=== PATIENT | female | born 1975 | race Caucasian/White ===

== ENCOUNTER 2020-07-01 10:00 | Outpatient (CLI) | payer BC, SELFPAY ==
--- NOTE | ~2020-07-01 | MM_ITS ---
EXAMINATION: MM screening emily BI w mauricio HISTORY: Screening mammogram TECHNIQUE: Craniocaudal and mediolateral oblique 3-D tomosynthesis images were obtained and synthetic 2-D images were generated. Bilateral rotated lateral CC views. CAD analysis was submitted and int erpreted. COMPARISON: 05/01/2019, 03/26/2018, 01/16/2017 bilateral digital screening mammogram examinations BREAST PARENCHYMAL COMPOSITION: There are scattered areas of fibroglandular density. FINDINGS: Stable bilateral fibroglandular asymmetry. There are bilateral benign calcifications. Ther e is no evidence of suspicious mass, calcification, or architectural distortion to suggest malignancy in either breast. There has been no suspicious interval change. IMPRESSION: 1. No mammographic evidence of malignancy. 2. Recommend routine screening mammography in one year. BI-RADS Category 2: Benign finding(s). Reviewed, dictated and finalized at location A.
== END 2020-07-01 10:01 | disposition home or self-care (01) ==
LOC: ANHIMG 10:03
PROVIDERS: PCP Family Medicine; Visit Provider Obstetrics & Gynecology
DX: Z12.31 Encounter for screening mammogram for malignant neoplasm of breast (principal); N64.89 Other specified disorders of breast
CPT/HCPCS: 77063; 77067

== ENCOUNTER 2021-06-23 00:39 | Day surgery (SDC) | payer BC, SELFPAY ==
[2021-06-14 09:04] VITALS: BMI 28.3
--- NOTE | 2021-06-22 08:23 | PM.HPGS ---
History of Present Illness History of Present Illness Consent: Risks, benefits, and alternatives have been discussed and questions answered. Patient agrees to proceed with procedure. Chief complaint: neoplasm screening Narrative: Mary Jo Rahman is a 45 year old female with a family history of colon cancer. Her last colonoscopy 6 years ago was unremarkable Review of Systems Review of Systems: All systems reviewed & are unremarkable except as noted in HPI and below PMFSH Past Medical History Medical History Overweight Surgical History Surgical History H/O colonoscopy H/O wrist surgery H/O: hysterectomy Social History Social History Smoking status: Never smoker Alcohol intake: current Alcohol use details: Occasional drink per week Substance use: never Substance use type: does not use Living arrangements: with family Gender identity (if verbalized by the patient): Female Spiritual care concerns: No Meds Home Medications and Allergies Home Medications Medication Instructions Recorded Confirmed Type No Home Medications 06/23/21 06/23/21 History Allergies Allergy/AdvReac Type Severity Reaction Status Date / Time metoclopramide Allergy Severe FEEL LIKE Verified 06/23/21 06:38 BUGS ARE CRAWLING ALL OVER ME Penicillins Allergy Intermediate Hives Verified 06/23/21 06:38 Exam Resp: Auscultation: clear to auscultation bilaterally Cardio: Rate: regular rate Rhythm: regular rhythm GI: GI Palp: Yes Soft to palpation and No Tenderness to palpation present (GI) Assessment and Plan Assessment and plan (1) Colon cancer screening: Code(s): Z12.11 - Encounter for screening for malignant neoplasm of colon Status: Acute Assessment and Plan: Colonoscopy with possible biopsy or polypectomy or cautery or injection of substances.
[2021-06-23 06:39] VITALS: BP 128/88; PULSE 68; RESP 18; TEMP 36.7; O2SAT 100
[2021-06-23] MEDS: LACTATED RINGERS 1,000 ML 150 ML IV CONT (06:48)
--- NOTE | 2021-06-23 07:01 | P.PNAN_ITS ---
Anes - Initial Pre Proc Eval Procedure: Operation Date: 06/23/21 08:00 Proposed Procedures p Screening Colonoscopy - Dany Edge MD Date/Time: 06/23/21 07:01 Surgeon: Dany Edge MD Pre Op Diagnosis: neoplasm screening Patient Data Age: 45 Gender: F Height: 1.63 m Weight: 75.7 kg Last Vital Signs Temp 36.7 C 06/23/21 06:39 Pulse 68 06/23/21 06:39 Resp 18 06/23/21 06:39 BP 128/88 06/23/21 06:39 Pulse Ox 100 06/23/21 06:39 Allergies Allergy/AdvReac Type Severity Reaction Status Date / Time metoclopramide Allergy Severe FEEL LIKE Verified 06/23/21 06:38 BUGS ARE CRAWLING ALL OVER ME Penicillins Allergy Intermediate Hives Verified 06/23/21 06:38 Home Medications Medication Instructions Recorded Confirmed Type No Home Medications 06/23/21 06/23/21 History Patient hx anesthesia problems: none Family hx anesthesia problems: none [facility] Past Medical History Medical History (Updated 06/23/21 @ 07:01 by Rafael Rocha MD) Overweight Surgical History Surgical History (Updated 06/23/21 @ 07:01 by Rafael Rocha MD) H/O colonoscopy H/O wrist surgery H/O: hysterectomy Social History Social History Smoking status: Never smoker Alcohol intake: current Alcohol use details: Occasional drink per week Substance use: never Substance use type: does not use Living arrangements: with family Gender identity (if verbalized by the patient): Female Spiritual care concerns: No Anes - Eval Final PreProcedure Day of Procedure 06/23/21 07:01 Patient weight: overweight Heart: regular rate and rhythm Lungs: clear to auscultation Airway: Mallampati scale class II Neurological: alert and oriented Last oral intake: >/= 8 hours ASA classification: II Emergent: no Anesthetic plan: proceed Anesthesia type and monitoring: general GIVS and standard monitoring Informed Consent: The patient's anesthetic plan and its attendant risks and benefits were discussed with the patient/family/POA. Questions were solicited and answers provided to the satisfaction of the patient/family/POA.
[2021-06-23 08:22] VITALS: BP 107/63; PULSE 82; RESP 21; O2SAT 100
[2021-06-23 08:32] VITALS: BP 125/74; PULSE 50; RESP 20; O2SAT 100
[2021-06-23 08:42] VITALS: BP 126/80; PULSE 52; RESP 18; O2SAT 100
== END 2021-06-23 08:24 | disposition home or self-care (01) ==
PROVIDERS: PCP Family Medicine; Visit Provider Internal Medicine Gastroenterology
PROC: 0DJD8ZZ Inspection of Lower Intestinal Tract, Via Natural or Artificial Opening Endoscopic (ICD-10-PCS; CPT 45378; principal; 2021-06-23 08:00)
DX: Z12.11 Encounter for screening for malignant neoplasm of colon (principal); Z80.0 Family history of malignant neoplasm of digestive organs
CPT/HCPCS: 45378; J2704; J7120

== ENCOUNTER 2021-07-07 10:04 | Outpatient (CLI) | payer BC, SELFPAY ==
--- NOTE | ~2021-07-07 | MM_ITS ---
EXAMINATION: MM screening emily BI w mauricio HISTORY: Screening mammogram TECHNIQUE: Craniocaudal and mediolateral oblique 3-D tomosynthesis images were obtained and synthetic 2-D images were generated. CAD analysis was submitted and interpreted. COMPARISON: 07/01/2020, 05/01/2019, 03/26/2018 bilateral screening mammogram examinations BREAST PARENCHYMAL COMPOSITION: There are scattered areas of fibroglandular density. FINDINGS: Occasional bilateral benign calcifications. There is no evidence of suspicious mass, calcif ication, or architectural distortion to suggest malignancy in either breast. There has been no suspic ious interval change. IMPRESSION: 1. No mammographic evidence of malignancy. 2. Recommend routine screening mammography in one year. BI-RADS Category 2: Benign finding(s). Reviewed, dictated and finalized at location A.
== END 2021-07-07 10:05 | disposition home or self-care (01) ==
LOC: ANHIMG 10:07
PROVIDERS: PCP Family Medicine; Visit Provider Obstetrics & Gynecology
DX: Z12.31 Encounter for screening mammogram for malignant neoplasm of breast (principal)
CPT/HCPCS: 77063; 77067

== ENCOUNTER 2022-08-16 11:01 | Outpatient (CLI) | payer BC, SELFPAY ==
--- NOTE | ~2022-08-16 | MM_ITS ---
EXAMINATION: MM screening emily BI w mauricio HISTORY: Screening TECHNIQUE: Craniocaudal and mediolateral oblique 3-D tomosynthesis images were obtained and synthetic 2-D images were generated. CAD analysis was submitted and interpreted. COMPARISON: Comparison to multiple prior studies sequentially, with oldest reviewed study dated 01/04. BREAST PARENCHYMAL COMPOSITION: The breasts are heterogeneously dense, which may obscure small masses . FINDINGS: There is no evidence of suspicious mass, calcification, or architectural distortion to sugg est malignancy in either breast. There has been no suspicious interval change. IMPRESSION: 1. No mammographic evidence of malignancy. 2. Recommend routine screening mammography in one year. BI-RADS Category 1: Negative Reviewed, dictated and finalized at location A.
== END 2022-08-16 11:02 | disposition home or self-care (01) ==
PROVIDERS: PCP Family Medicine; Visit Provider Obstetrics & Gynecology
DX: Z12.31 Encounter for screening mammogram for malignant neoplasm of breast (principal)
CPT/HCPCS: 77063; 77067

== ENCOUNTER 2023-12-12 09:48 | Outpatient (CLI) | payer BC, SELFPAY ==
--- NOTE | ~2023-12-12 | MM_ITS ---
EXAMINATION: MM screening [facility] BI w mauricio HISTORY: Screening TECHNIQUE: Craniocaudal and mediolateral oblique 3-D tomosynthesis images were obtained and synthetic 2-D images were generated. CAD analysis was submitted and interpreted. COMPARISON: Comparison to multiple prior studies sequentially, with oldest reviewed study dated 03/26. BREAST PARENCHYMAL COMPOSITION: Not dense: There are scattered areas of fibroglandular density. FINDINGS: There is no evidence of suspicious mass, calcification, or architectural distortion to sugg est malignancy in either breast. There has been no suspicious interval change. IMPRESSION: 1. No mammographic evidence of malignancy. 2. Recommend routine screening mammography in one year. BI-RADS Category 1: Negative Reviewed, dictated and finalized at location A. DIAN
== END 2023-12-12 09:49 | disposition home or self-care (01) ==
LOC: ANHIMG 09:50
PROVIDERS: Visit Provider Obstetrics & Gynecology
DX: Z12.31 Encounter for screening mammogram for malignant neoplasm of breast (principal)
CPT/HCPCS: 77063; 77067

== ENCOUNTER 2025-01-14 15:23 | Outpatient (CLI) | payer BC, SELFPAY ==
--- NOTE | ~2025-01-14 | MM_ITS ---
EXAMINATION: MM screening emily BI w mauricio HISTORY: Screening TECHNIQUE: Craniocaudal and mediolateral oblique 3-D tomosynthesis images were obtained and synthetic 2-D images were generated. CAD analysis was submitted and interpreted. COMPARISON: Comparison to multiple prior studies sequentially, with oldest reviewed study dated 03/26. BREAST PARENCHYMAL COMPOSITION: . Not dense: There are scattered areas of fibroglandular density. FINDINGS: There is no evidence of suspicious mass, calcification, or architectural distortion to sugg est malignancy in either breast. There has been no suspicious interval change. IMPRESSION: 1. No mammographic evidence of malignancy. 2. Recommend routine screening mammography in one year. BI-RADS Category 1: Negative Reviewed, dictated and finalized at location A.
--- OUTSIDE RECORDS SUMMARY | 2025-01-14 16:51 | XMS_ITS | Encounter Summary ---
Author Organization [facility] Address [address] [facility] [place] [address] Care Team Providers Care It Security Analyst Name Role Phone Unavailable Primary Care Provider Unavailabl e Encounter Details Date Type Department Care Team (Late st Contact Info) Description 11/02/2018 Lab Requisition [facility] Care DermPath Lab [address] [place] [id number] Ophelia Ruiz MD [address] [facility] [address] [place] [address] Social History Tobacco Use Types Packs/Day Years Used Date Smoking Tobacco: Never Assessed Sex and Gender Information Value Date Recorded Sex Assigned at Not on file Gender Identity Not on file Sexual Orientation Not on file documented as of this encounter Plan of Treatment Not on file documented as of this encounter Procedures Procedure Name Priority Date/Time Associated Diagnosis Comments DERMATOPATH TECHNICAL REPORT Routine 10/31/2018 12:00 AM RN WOMEN SERVICES documented in this encounter Results * DERMATOPATH TECHNICAL REPORT (10/31/2018 12:00 AM RN WOMEN SERVICES) Case Report Dermatopathology Report Case: [id number] Authorizing Provider: Ophelia Ruiz MD Collected: 10/31/2018 12:00 AM Pathologist: Julienne Dewey MD Received: 11/02/2018 06:52 AM Specimen: Skin, left neck 9 1:34 PM RN WOMEN SERVICES DERMATOPATHOLOGY LABORATORY Clinical History R/O nevus, lentigo, black macule, tattoo 9 1:34 PM [facility] DERMATOPATHOLOGY LABORATORY Gross Description Specimen A: Received is one formalin filled container labeled with the patient's name and designated left neck. The specimen consists of a punch biopsy measuring 2x2x3 mm. Jar 0. [facility] Dermatopathology Laboratory performed the technical component only. 9 1:34 PM [facility] DERMATOPATHOLOGY LABORATORY Embedded Images 9 1:34 PM [facility] DERMATOPATHOLOGY LABORATORY DISCLAIMER An external and internal positive and negative controls are appropriate for the histochemical, immunohistochemical and immunofluorescence stain(s) in this case (if any), except where stated explicitly. The performance characteristics of the stain(s) cited in this report were developed and its performance characteristic determined by the Dermatopathology Laboratory at [facility], directed by Dr. Christi Weber. These tests need not be, and therefore are not, approved by the [place] Food and Drug Administration. The tests are used for clinical purposes. 9 1:34 PM [facility] DERMATOPATHOLOGY LABORATORY Pathology/Cytolog y TISSUE SPECIMEN FROM SKIN / Unknown 10/31/2018 11/02/2018 6:52 AM RN WOMEN SERVICES Ophelia Ruiz MD LAB - PATHOLOGY/CYTO LOGY ORDERABLES DERMATOPATHOLOGY LABORATORY [facility] - Department of Dermatology [address], [address] Lab [address] [phone] documented in this encounter Visit Diagnoses Not on filedocumented in this encounter
--- OUTSIDE RECORDS SUMMARY | 2025-01-14 16:51 | XMS_ITS | Clinical Summary ---
Author Organization [facility] Address [address] [place] [address] Care Team Providers Care Coining Press Operator Name Role Phone Unavailable Primary Care Provider Unavailabl e Source Comments [facility] [employer],non-owned Affiliates and Associated Physician Practices is amultiple site organization consisting of ambulatory clinics and hospital sitesin [place], [place], [place] and [place]. This disclosure is being madepursuant to the Care Everywhere program and may not contain all information available regarding this patient. Last updated 18.[facility] [employer] [facility] Social History Tobacco Use Types Packs/Day Years Used Date Smoking Tobacco: Never Assessed Sex and Gender Information Value Date Recorded Sex Assigned at Not on file Gender Identity Not on file Sexual Orientation Not on file Plan of Treatment Health Maintenance Due Date Last Done Comments COLOGUARD (AGES 45-75) - COL ON CA SCREENING 1974 COLON MONITORING 1974 COLONOSCOPY - COLON CA SCREENING 1974 CT COLONOGRAPHY - COLON CA SCREENING 1974 Colorectal Cancer Screening 1974 FIT - COLON CA SCREENING 1974 FLEX SIG - COLON CA SCREENING 1974 LIPID TESTING 1974 MAMMOGRAM 1974 PAP SMEAR 1974 HIV SCREENING 1989 HEPATITIS C SCREENING 10/27/1992 DTAP/TDAP/TD VACCINES (1 - Tdap) 1993 HEPATITIS B VACCINE (1 of 3 - 19+ 3-dose series) 1993 COVID-19 VACCINE (1 - 2023-2 5 season) 2024 INFLUENZA VACCINE (#1) 2024 DEPRESSION SCREENING 10/16/2024 PNEUMOCOCCAL VACCINE 50+ (1 of 1 - PCV) 2024 ZOSTER VACCINE (1 of 2) 2024 HIB VACCINE Aged Out No longer eligi ble based on patient's age to complete this topic HPV VACCINE Aged Out No longer eligi ble based on patient's age to complete this topic MENINGOCOCCAL (Group B) VACC INE SHARED DECISION-MAKING Aged Out No longer eligibl e based on patient's age to complete this topic MENINGOCOCCAL GROUPS A/C/Y/W VACCINE Aged Out No longer eligible b ased on patient's age to complete this topic PNEUMOCOCCAL VACCINE Aged Out No long er eligible based on patient's age to complete this topic
--- OUTSIDE RECORDS SUMMARY | 2025-01-14 16:51 | XMS_ITS | Encounter Summary ---
Author Organization [facility] Address [address] [facility] [place] [address] Care Team Providers Care Half Sole Fitter Name Role Phone Unavailable Primary Care Provider Unavailabl e Encounter Details Date Type Department Care Team (Late st Contact Info) Description 03/01/2023 Lab Requisition [facility] - DermPath Lab [address] [place] [address] Ophelia Ruiz MD [address] [facility] [address]L DEPT [place] [address] Social History Tobacco Use Types Packs/Day Years Used Date Smoking Tobacco: Never Assessed Sex and Gender Information Value Date Recorded Sex Assigned at Not on file Gender Identity Not on file Sexual Orientation Not on file documented as of this encounter Plan of Treatment Not on file documented as of this encounter Procedures Procedure Name Priority Date/Time Associated Diagnosis Comments DERMATOPATHOLOGY Routine 03/01/2023 9:23 AM CDT documented in this encounter Results * DERMATOPATHOLOGY (03/01/2023 9:23 AM CDT) Case Report Dermatopathology Report Case: [id number] Authorizing Provider: Ophelia Ruiz MD Collected: 03/01/2023 09:23 AM Ordering Location: [facility] DermPath Lab Received: 03/02/2023 08:26 AM Pathologist: Shawna Weber MD Specimen: Skin, right upper arm 3 4:59 PM CDT DERMATOPATHOLOGY LABORATORY Final Diagnosis Specimen A. 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 The 12 to 6 o'clock margin is inked green. The 6 o'clock to 12 o'clock margin is inked black. The 12 o'clock tip is submitted in cassette 1. The 6 o'clock tip is submitted in cassette 2. The remainder of the ellipse is serially sectioned and submitted in cassettes 3 -4. Jar 0. 3 4:59 PM CDT DERMATOPATHOLOGY LABORATORY Microscopic Description Specimen A. SKIN, right upper arm: There are fibroblasts and collagen bundles oriented parallel to the skin surface. There are elongated blood vessels, some of which are oriented perpendicular to the skin surface. No residual squamous cell carcinoma is identified. 3 4:59 PM T DERMATOPATHOLOGY LABORATORY Disclaimer An external and internal positive and negative controls are appropriate for the histochemical, immunohistochemical and immunofluorescence stain(s) in this case (if any), except where stated explicitly. The performance characteristics of the stain(s) cited in this report were developed and its performance characteristic determined by the Dermatopathology Laboratory at [facility], directed by Dr. Christi Weber. These tests need not be, and therefore are not, approved by the [place] Food and Drug Administration. The tests are used for clinical purposes. Billing Codes Specimen Charges Stain Charges 90886 1 3 4:59 PM CDT DERMATOPATHOLOGY LABORATORY Embedded Images 3 4:59 PM CDT DERMATOPATHOLOGY LABORATORY Pathology/Cytolo gy TISSUE SPECIMEN FROM SKIN / Unknown 03/01/2023 9:23 AM CDT 03/02/2023 8:26 AM CDT Ophelia Ruiz MD LAB - PATHOLOGY/CYTO LOGY ORDERABLES DERMATOPATHOLOGY LABORATORY [facility] - Department of Dermatology [address], [address] [phone] documented in this encounter Visit Diagnoses Not on filedocumented in this encounter
--- OUTSIDE RECORDS SUMMARY | 2025-01-14 16:51 | XMS_ITS | Clinical Summary ---
Author Organization [facility] Address [facility] [place] [address] Care Team Providers Care Development Specialist Name Role Phone Unavailable Primary Care Provider Unavailabl e Social History Tobacco Use Types Packs/Day Years Used Date Smoking Tobacco: Never Assessed Comments Unknown Sex and Gender Information Value Date Recorded Sex Assigned at Not on file Legal Sex Female 6:18 PM CDT Gender Identity Not on file Sexual Orientation Not on file Plan of Treatment Health Maintenance Due Date Last Done Comments Cervical Cancer Screening Pa p Smear (Age 30 to 64) Every 3 Years 1974 Colorectal Cancer Screening Colonoscopy (10 Years) 1974 Annual Physical 1977 Hepatitis C 1992 DTaP, Tdap and Td Vaccines ( 1 - Tdap) 1993 Hepatitis B Vaccines (1 of 3 - 19+ 3-dose series) 1993 Cervical Cancer Screening Pa p with HPV Testing (Age 30 to 64) Every 5 Years 2004 Cervical Cancer Screening with HPV 2004 Mammogram Screening 2014 COVID-19 Vaccine (2023-2 5 season) 2024 Influenza Adult (#1) 2024 Zoster Vaccines (1 of 2) 2024 Meningococcal B Vaccine Aged Out No l onger eligible based on patient's age to complete this topic Meningococcal Vaccine Aged Out No ambrocio milo eligible based on patient's age to complete this topic Pneumococcal Vaccine: Pediat rics (0 to 5 Years) and At-Risk Patients (6 to 64 Years) Aged Out No longer eligible b ased on patient's age to complete this topic RSV Immunizations Under 20 Months Aged Out No longer eligible based on patient's age to complete this topic Insurance [address] [address]
--- OUTSIDE RECORDS SUMMARY | 2025-01-14 16:51 | XMS_ITS | Data Portability ---
Author Organization [facility], [address] [facility] ([place]) Address [address]th [place] [address] Care Team Providers Care Adjunct Business Instructor Name Role Phone MANUEL SIMPSON Primary Care Provider Assessment Encounter Date Assessment Date Assessment LastModified by Organization Details LastModified Time 04/08/2024 04/08/2024 Strep test was negative. We will treat with antibiotic. May alternate ibuprofen and Tylenol for fever or discomfort. If worsening symptoms, will contact us. [email or web address] Not available 04/09/2024 05:08:00 11/15/2024 11/15/2024 Discussed migraine triggers, including diet high in processed food, poor sleep, stress, MSG and caffeine. Discussed abortive therapy for migraines. Patient has never done abortive therapy. We will do sumatriptan. Appropriate instructions given for dosing and possible side effects of medication. At the onset of migraine, she is to take one sumatriptan along with 800 mg of ibuprofen and 8 to 12 ounces of water. If this is ineffective, she can increase to 100 mg at onset of her migraine. She will let us know if this is ineffective or if her frequency continues to go up. Plan of care reviewed and discussed with patient. Patient verbalizes understanding and has no questions. [email or web address] Not available 11/15/2024 12:46:12 Plan of Treatment Reminders Order Date Submit Date Provider Last Modified By Organization Details Last Modified Time Details Appointments None recorded. Lab streptococc us group A DNA 2023 024 [facility], [address] [place] [address], [id number], 18:10:40 Referral None recorded. Procedures None recorded. Surgeries None recorded. Imaging None recorded. Medication Orders sumatriptan 50 mg tablet 2024 025 [facility], [address] [place] [address], [id number], 5 09:08:14 azithromyci n 250 mg tablet 2023 024 [facility], [address] [place] [address], [id number], 5 15:16:14 Patient TargetsNo targets recorded. Patient InstructionsNo instructions recorded. Reason for Referral None Reported. Results Created Date Observation Date Name Description Value Unit Range Abnormal Flag Note LastModifiedBy Organization Detail LastModifiedTime 04/08/20 24 04/08/2024 strep tococ cus group A DNA group A strep DNA probe NEGATI VE negati ve Speci men negat link for Strep tococ cus pyoge odilia (Grou p A Strep ) by DNA ampli ficat ion. Not Available [facility] [address], [address], 04/08/2024 18:10:40 Result Notes None recorded. Problems Name Problem SNOMED Code Status Onset Date Resolution Date Notes Provider Name and Address Organization Details Recorded Time Migraine without aura, not refractory 708488539 Active 025 Salvador Sellers, SUPERVISOR [employer], [employer] TECHNICIAN [address] [place] [address], [phone] [place] [address] 5 12:26:00 Problem Notes None recorded. Procedures Surgical History Date Name Laterality Status Provider Name and Address Organization Details Recorded Time section completed [facility] 04/08/2024 14:32:26 Colonoscopy completed [facility] 04/08/2024 14:32:34 Hysterectomy completed [facility] 04/08/2024 14:32:40 excision of lesion of skin completed [facility] 04/08/2024 14:32:50 procedure on wrist completed [facility] 04/08/2024 14:33:26 Imaging Results None recorded. Procedure Notes None recorded. Medical Equipment None Reported. Allergies Allergen ID Allergen Name Allergen Category Reaction Reaction Severity Criticality Documentation Date Start Date Code Code System Note Provider Name and Address Organization Details Recorded Time 355021 Product containin g penicilli n (product) medicatio n hives Not available Not available 11/13/20232021 37299 8001 SNOMED React ion: Hives ; Not Available Not Available Not Available Medications Name Sig Start Date Stop Date Status Note LastModified by Organization Details LastModified Time azithromycin 250 mg tablet TAKE 2 TABLETS (500 MG) BY ORAL ROUTE ONCE DAILY FOR 1 DAY THEN 1 TABLET (250 MG) BY ORAL ROUTE ONCE DAILY FOR 4 DAYS 11/15 completed Not Available Not Available Not Available sumatriptan 50 mg tablet Take 1 tab at onset of migraine . Can repeat in 2 hours. Max dose of 200mg in 24 hours. 2024 active Not Available Not Available Not Avai lable Vitals Date Recorded Body height Body mass index (BMI) Body weight Body temperature Respiratory rate Oxygen saturation Oxygen saturation in Arterial blood by Pulse oximetry Heart rate Systolic blood pressure Diastolic blood pressure Provider Name and Address Organization Details Last Updated DateTime 4 162.56 cm 29.5 kg/m2 05301.8 9 g 96.9 [degF] 18 /min 96 % 96 % 84 /min 126 mm[Hg] 82 mm[Hg] [facility] 4 14:03:45 Date Recorded Body height Heart rate Respiratory rate Oxygen saturation Oxygen saturation in Arterial blood by Pulse oximetry Systolic blood pressure Diastolic blood pressure Provider Name and Address Organization Details Last Updated DateTime 5 162.56 cm 77 /min 16 /min 98 % 98 % 128 mm[Hg] 84 mm[Hg] Makayla Huerta [facility] 5 08:41:06 Social History None recorded. Functional Status None recorded. Mental Status None recorded. Family History Relationship Description Onset Age of this Age Resolved Age Notes LastModified by Organization Details LastModified Time Father Arthritis [email or web address] Not availa ble 04/08/2024 14:31:25 Father Malignant tumor of colon [email or web address] Not available 04/08 14:31:41 Father Heart disease [email or web address] Not available 04/08 14:31:55 Medical History No medical history recorded. Gynecological HistoryNo gynecological history recorded. Obstetrics History GPAL:G 0 P 0 0 0 0 Immunizations Vaccine Type Date Status Note Provider Nam e and Address Organization Details Recorded Time Influenza, MDCK, trivalent, PF 07/26/2024 completed Makayla Huerta [facility] 07/26/2024 12:33:10 Influenza, MDCK, quadrivalent, PF 07/21/2022 completed Pati Cardozo [facility] 04/08/2024 14:30:49 Influenza, MDCK, quadrivalent, PF 08/03/2023 completed [facility] 04/08/2024 14:30:49 COVID-19, mRNA, LNP-S, PF, 100 mcg/0.5mL dose or 50 mcg/0.25mL dose 11/13/2020 completed [facility] 04/08/2024 14:30:49 COVID-19, mRNA, LNP-S, PF, 100 mcg/0.5mL dose or 50 mcg/0.25mL dose 10/13/2020 completed [facility] 04/08/2024 14:30:49 COVID-19, mRNA, LNP-S, PF, 50 mcg/0.5 mL dose 08/18/2021 completed [facility] 04/08/2024 14:30:49 COVID-19, mRNA, LNP-S, bivalent, PF, 50 mcg/0.5 mL or 25mcg/0.25 mL dose 08/31/2022 completed [facility] 04/08/2024 14:30:49 Past Encounters Encounter ID Performer Location Encounter Start Date Encounter Closed Date Diagnosis/Indication Diagnosis SNOMED-CT Code Diagnosis ICD10 Code Diagnosis Note [id number] Manuel Simpson MD [facility] ([place]) [address] [place] [address] 04/08/2024 13:56:04 04/08/2024 16:04:49 Sore throat 533184900 J02.9 [id number] Manuel Simpson MD [facility] ([place]) [address] [place] [address] 11/15/2024 08:30:13 11/15/2024 09:20:29 Migraine without aura, not refractory 663071171 G43.009 Health Concerns Section Related Observation LastModified by Organization Detai ls LastModified Time None Recorded Concern Status LastModified by Organization Details LastModified Time None Recorded Advance Directives Directive None Recorded Payers Encounter Date Sequence Insurance Name Policy Number Policy Tsang Covered Member ID Tsang Member ID Guarantor Name 04/08/2024 1 [facility] [id number] Toby Rahman [id number] Mary Jo Rahman 11/15/2024 [place] [id number] Toby Rahman [id number] Mary Jo Rahman Notes Date Note Type Note Provider Name and Address Organization Details Recorded Time 04/08/2024 text/html This is a 48-year-old patient that stated in with a bad sore throat on . It has not let up. She is having a hard time swallowing. She has been sleeping with a cough drop in just because she cannot sleep with the pain has been alternating ibuprofen and Tylenol every like 3-4 hours and still the pain is breaking through that.[email or web address] The patient reports that has been dealing with a headache, fatigue and sore throat since . She denies any other symptoms and has not had a fever. Niurka James PA-C [address] [place] [address], [phone], [facility] 04/10/2024 00:33:59 11/15/2024 text/html This 49-year-old female is here today to discuss migraines. Patient reports she has had migraines since she was in her 20s. Typically would happen two to three times a year. Her migraines have always caused left eye pain and headache. That is always how it starts as well, pressure sensation to the left eye, then progresses to worsening pain, light and noise sensitivity. Typically, she is able to take ibuprofen, higher doses of caffeine and go rest and that resolves her pain. Recently, she has noticed an increased frequency of her migraines from two to three times a year to now one every couple of months. She also had a severe migraine earlier this week. Four days ago, woke up in the middle of the night with severe left eye and headache pain and then had some associated vision changes. She did not have visual loss or visual acuity problems. She states there was just a yellow hue to her vision compared to the right. She also had some nausea at that time and the noise and light sensitivity. Has never tried abortive therapy. Denies any lifestyle changes. Has had some increased stress but otherwise, no significant lifestyle changes. Salvador Sellers, SUPERVISOR [employer], [employer] TECHNICIAN [address] [place] [address], [phone], [place] [facility] 11/20/2024 21:12:47 OBGyn Episode No OBEpisode recorded.
--- OUTSIDE RECORDS SUMMARY | 2025-01-14 16:51 | XMS_ITS | Encounter Summary ---
Author Organization [facility] Address [address] [facility] [place] [address] Care Team Providers Care Director [employer] Name Role Phone Unavailable Primary Care Provider Unavailabl e Encounter Details Date Type Department Care Team (Late st Contact Info) Description 02/21/[address] [facility] - DermPath Lab [address] [facility] [place] [address] Ophelia Ruiz MD [address] [facility] [address]L [place] [address] Social History Tobacco Use Types Packs/Day Years Used Date Smoking Tobacco: Never Assessed Sex and Gender Information Value Date Recorded Sex Assigned at Not on file Gender Identity Not on file Sexual Orientation Not on file documented as of this encounter Plan of Treatment Not on file documented as of this encounter Procedures Procedure Name Priority Date/Time Associated Diagnosis Comments DERMATOPATHOLOGY Routine 02/21/2024 1:25 PM CDT documented in this encounter Results * DERMATOPATHOLOGY (02/21/2024 1:25 PM CDT) Case Report Dermatopathology Report Case: [id number] Authorizing Provider: Ophelia Ruiz MD Collected: 02/21/2024 01:25 PM Ordering Location: [facility] - Received: 02/23/2024 09:00 AM DermPath Lab Pathologist: Alissa Matos MD Specimen: Skin, right forearm 1:40 PM CDT DERMATOPATHOLOGY LABORATORY Final Diagnosis Specimen A. SKIN, right forearm: ACTINIC KERATOSIS (L57.0) 1:40 PM CDT DERMATOPATHOLOGY LABORATORY Clinical History LPLK, BCC 1:40 PM CDT DERMATOPATHOLOGY LABORATORY Gross Description Specimen A: Received is one formalin filled container labeled with the patient's name and designated right forearm. The specimen consists of a shave biopsy measuring 6x5x1 mm. Jar 0. 1:40 PM [facility] DERMATOPATHOLOGY LABORATORY Microscopic Description Specimen A. SKIN, right forearm: There is focal parakeratosis. The lower half of the epidermis shows disorderly maturation of keratinocytes with nuclear pleomorphism. 1:40 PM T DERMATOPATHOLOGY LABORATORY Disclaimer An external and internal positive and negative controls are appropriate for the histochemical, immunohistochemical and immunofluorescence stain(s) in this case (if any), except where stated explicitly. The performance characteristics of the stain(s) cited in this report were developed and its performance characteristic determined by the Dermatopathology Laboratory at [facility], directed by Dr. Christi Weber. These tests need not be, and therefore are not, approved by the [place] Food and Drug Administration. The tests are used for clinical purposes. Billing Codes Specimen Charges Stain Charges 28157 1 1:40 PM CDT DERMATOPATHOLOGY LABORATORY Embedded Images 1:40 PM T DERMATOPATHOLOGY LABORATORY Pathology/Cytolo gy TISSUE SPECIMEN FROM SKIN / Unknown 02/21/2024 1:25 PM CDT 02/23/2024 9:00 AM CDT Ophelia Ruiz MD LAB - PATHOLOGY/CYTO LOGY ORDERABLES DERMATOPATHOLOGY LABORATORY [facility] - Department of Dermatology [address], [address] [phone] documented in this encounter Visit Diagnoses Not on filedocumented in this encounter
--- OUTSIDE RECORDS SUMMARY | 2025-01-14 16:51 | XMS_ITS | Encounter Summary ---
Author Organization [facility] Address [address] [place] [address] Care Team Providers Care Folding Machine Tender Name Role Phone Unavailable Primary Care Provider Unavailabl e Encounter Details Date Type Department Care Team (Late st Contact Info) Description 08/08/2023 Lab Requisition [facility] - DermPath Lab [address] [facility], [place] [address] Ophelia Ruiz MD [address] [facility] [address]L [place] [address] Social History Tobacco Use Types Packs/Day Years Used Date Smoking Tobacco: Never Assessed Sex and Gender Information Value Date Recorded Sex Assigned at Not on file Gender Identity Not on file Sexual Orientation Not on file documented as of this encounter Plan of Treatment Not on file documented as of this encounter Procedures Procedure Name Priority Date/Time Associated Diagnosis Comments DERMATOPATHOLOGY Routine 08/08/2023 1:12 PM CDT documented in this encounter Results * DERMATOPATHOLOGY (08/08/2023 1:12 PM CDT) Case Report Dermatopathology Report Case: [id number] Authorizing Provider: Ophelia Ruiz MD Collected: 08/08/2023 01:12 PM Ordering Location: [facility] DermPath Lab Received: 08/09/2023 11:50 AM Pathologist: Nilsa Patton MD Specimen: Skin, right thigh 12:58 PM CDT DERMATOPATHOLOGY LABORATORY Final Diagnosis Specimen A. SKIN, right thigh: COMPOUND MELANOCYTIC NEVUS (D22.71) 12:58 PM CDT DERMATOPATHOLOGY LABORATORY Clinical History R/O Melanoma, Nevus 12:58 PM CDT DERMATOPATHOLOGY LABORATORY Gross Description Specimen A: Received is one formalin filled container labeled with the patient's name and designated right thigh. The specimen consists of a shave biopsy measuring 6x4x1 mm. Jar 0. 3 12:58 PM [facility] DERMATOPATHOLOGY LABORATORY Microscopic Description Specimen A. SKIN, right thigh: There are nests of melanocytes at the dermal-epidermal junction and within the dermis. 3 12:58 PM [facility] DERMATOPATHOLOGY LABORATORY Disclaimer An external and internal positive and negative controls are appropriate for the histochemical, immunohistochemical and immunofluorescence stain(s) in this case (if any), except where stated explicitly. The performance characteristics of the stain(s) cited in this report were developed and its performance characteristic determined by the Dermatopathology Laboratory at [facility], directed by Dr. Christi Weber. These tests need not be, and therefore are not, approved by the [place] Food and Drug Administration. The tests are used for clinical purposes. Billing Codes Specimen Charges Stain Charges 61475 1 3 12:58 PM T DERMATOPATHOLOGY LABORATORY Embedded Images 3 12:58 PM T DERMATOPATHOLOGY LABORATORY Pathology/Cytolo gy TISSUE SPECIMEN FROM SKIN / Unknown 08/08/2023 1:12 PM CDT 08/09/2023 11:50 AM CDT Ophelia Ruiz MD LAB - PATHOLOGY/CYTO LOGY ORDERABLES DERMATOPATHOLOGY LABORATORY [facility] - Department of Dermatology [address] [phone] documented in this encounter Visit Diagnoses Not on filedocumented in this encounter
== END 2025-01-14 15:24 | disposition home or self-care (01) ==
PROVIDERS: Visit Provider Obstetrics & Gynecology
DX: Z12.31 Encounter for screening mammogram for malignant neoplasm of breast (principal)
CPT/HCPCS: 77063; 77067